=== PATIENT | female | born 1945 ===

== ENCOUNTER 2020-04-18 13:09 | Outpatient (CLI) | payer MEDICARE, OTHER ==
[~2020-04-18] VITALS: Ht 154.9 cm; Wt 53.1 kg
[2020-04-18 13:28] VITALS: BP 140/75
--- NOTE | 2020-04-22 18:29 | Consultation ---
DATE OF CONSULTATION: 04/18/2020 CHIEF COMPLAINT: Weight loss, constipation. HISTORY OF PRESENT ILLNESS: This is a very pleasant 75-year-old female referred to us for complaint of abdominal pain. The patient also complained of constipation, lost about 15 months unwanted. Last colonoscopy about 20 years ago. PAST MEDICAL HISTORY: Bilateral knee pain. PAST SURGICAL HISTORY: None. MEDICATIONS: Please see medication reconciliation list. FAMILY HISTORY: Noncontributory. SOCIAL HISTORY: The patient denies any tobacco, alcohol, or drug use. ALLERGIES: No known allergies. REVIEW OF SYSTEMS: Positive as above. PHYSICAL EXAMINATION: VITAL SIGNS: Temperature 97.2, blood pressure 140/75, pulse 74, respirations 20. HEENT: Normocephalic and atraumatic. Sclerae anicteric. NECK: Supple. No evidence of obvious lymphadenopathy. CARDIOVASCULAR: Regular rate and rhythm. Plus S1, S2. LUNGS: Clear to auscultation bilaterally. ABDOMEN: Positive bowel sounds. Soft and nontender. No rebound. No guarding. No peritoneal sign. EXTREMITIES: No cyanosis. No clubbing. No edema. ASSESSMENT AND PLAN: This is a 75-year-old female with abdominal pain, constipation, 15 pounds of weight loss. No prior history of recent colonoscopy or endoscopy, needs both. We will schedule her. We are going to give her prep and schedule her for endoscopy and colonoscopy. Nick Ibarra M.D. DR: [place] JOB#: [id number] CC:
== END 2020-04-18 14:36 | disposition home or self-care (01) ==
LOC: PAN 13:09
DX: R10.9 Unspecified abdominal pain (principal)
CPT/HCPCS: 99203